=== PATIENT | female | born 1980 | race Two or more races ===

== ENCOUNTER 2020-08-01 16:25 | Emergency (ER) | payer MEDICAID, OTHER ==
[~2020-08-01] VITALS: Ht 160 cm; Wt 80.3 kg
[2020-08-01 18:54] VITALS: BP 135/75
== END 2020-08-01 21:17 | disposition home or self-care (01) ==
LOC: ER 16:25
DX: S16.1XXA Strain of muscle, fascia and tendon at neck level, initial encounter (principal); S29.019A Strain of muscle and tendon of unspecified wall of thorax, initial encounter; S20.219A Contusion of unspecified front wall of thorax, initial encounter; V49.9XXA Car occupant (driver) (passenger) injured in unspecified traffic accident, initial encounter; Y93.89 Activity, other specified; Y92.89 Other specified places as the place of occurrence of the external cause; Y99.8 Other external cause status
CPT/HCPCS: 71045; 81025